=== PATIENT | male | born 1960 | race Caucasian/White ===

== ENCOUNTER 2023-11-01 01:11 | Emergency (ER) | payer MEDICARE, MEDICAID ==
[~2023-11-01] VITALS: Ht 137.2 cm; Wt 58.0 kg
[2023-11-01 01:29] VITALS: TEMP 97.7
[2023-11-01] MEDS ORDERED: diatrozoate meglu/diatrozoate sod (37% iodine) 120ML oral solution PO ONE (01:55)
[2023-11-01] MEDS ORDERED: diatr meglu/diatrizoate 30ml oral sol.-(3 dose) bottle PO ONE (02:05)
[2023-11-01 03:30] VITALS: BP 114/73; PULSE 60; RESP 16; O2SAT 99
== END 2023-11-01 03:32 ==
LOC: ER 01:13
DX: K94.20 Gastrostomy complication, unspecified (principal)
CPT/HCPCS: 74018; 99284; Q9963; A6402